=== PATIENT | male | born 1950 | race Caucasian/White ===

== ENCOUNTER 2017-01-06 07:55 | Day surgery (SDC) | payer OTHER ==
[~2017-01-06] VITALS: Ht 167.6 cm; Wt 79.4 kg
[~2017-01-06 07:55] MED LIST: AVAPRO300 MG PO; MULTIPLE VITAM1 EACH PO; PRAVACHOL80 MG PO; ZETIA10 MG PO
[2017-01-06 08:35] VITALS: BP 148/92
[2017-01-06 11:48] VITALS: BP 138/82
[2017-01-06 12:40] VITALS: BP 134/89
== END 2017-01-06 12:55 | disposition home or self-care (01) ==
LOC: SDC 07:55
DX: H43.12 Vitreous hemorrhage, left eye (principal); H33.312 Horseshoe tear of retina without detachment, left eye; I10 Essential (primary) hypertension; I25.10 Atherosclerotic heart disease of native coronary artery without angina pectoris; E78.00 Pure hypercholesterolemia, unspecified; L30.9 Dermatitis, unspecified; Z82.49 Family history of ischemic heart disease and other diseases of the circulatory system
CPT/HCPCS: J0690; J1100; J1885; J2250; J2405; J3010; J3300